=== PATIENT | male | born 1965 | race Two or more races ===

== ENCOUNTER → 2021-01-26 08:00 | Outpatient (CLI) | payer OTHER | END | disposition home or self-care (01) | LOC: PPH VACUNA 08:00 | DX: Z23 Encounter for immunization (principal) ==

== ENCOUNTER 2021-08-13 16:03 | Emergency (ER) | payer OTHER ==
[~2021-08-13] VITALS: Ht 165.1 cm; Wt 95.7 kg
[2021-08-13] MEDS ORDERED: GLUMETZA500 MG PO (16:12)
[2021-08-13] MEDS ORDERED: GLIMEPIRIDE4 MG (16:12)
[2021-08-13] MEDS ORDERED: TOUJEO MAX300 UNIT/1 (16:13)
[2021-08-13] MEDS ORDERED: ADULT LOW DOSE81 M1 PO (16:13)
[2021-08-13] MEDS ORDERED: CRESTOR10 MG PO (16:13)
[2021-08-13] MEDS ORDERED: ALTACE10 MG PO (16:13)
== END 2021-08-13 18:07 | disposition home or self-care (01) ==
LOC: ER 16:03
DX: S50.11XA Contusion of right forearm, initial encounter (principal); W13.2XXA Fall from, out of or through roof, initial encounter; Y93.89 Activity, other specified; Y92.018 Other place in single-family (private) house as the place of occurrence of the external cause; S70.01XA Contusion of right hip, initial encounter; Y93.79 Activity, other specified sports and athletics; E11.65 Type 2 diabetes mellitus with hyperglycemia; Z79.4 Long term (current) use of insulin

== ENCOUNTER 2022-11-29 03:00 | Outpatient (CLI) | payer OTHER ==
[~2022-11-29 03:00] MED LIST: ADULT LOW DOSE81 M1 PO; ALTACE10 MG PO; CRESTOR10 MG PO; GLIMEPIRIDE4 MG; GLUMETZA500 MG PO; TOUJEO MAX300 UNIT/1
== END 2022-11-29 03:15 | disposition home or self-care (01) ==
LOC: PPH VACUNA 03:00
PROVIDERS: ATTEND Emergency Medicine Pediatric Emergency Medicine
DX: Z23 Encounter for immunization (principal)